=== PATIENT | female | born 1930 | race Caucasian/White ===

== ENCOUNTER 2017-03-01 13:08 | Emergency (ER) | payer OTHER ==
[~2017-03-01 13:08] MED LIST: ASCORBIC ACID500 MG PO; ASPIRIN325 MG PO; B-121000 MC1 PO; HYDROCHLOROTHIA25 MG PO; K-DUR20 MEQ PO; PRILOSEC20 MG PO; PRINIVIL5 MG PO; SYNTHROID25 MCG PO
== END 2017-03-01 19:58 | disposition critical access hospital (66) ==
LOC: ER 13:08
DX: D64.9 Anemia, unspecified (principal); I48.91 Unspecified atrial fibrillation; J98.4 Other disorders of lung; I10 Essential (primary) hypertension; Z79.82 Long term (current) use of aspirin; Z79.899 Other long term (current) drug therapy; Z88.1 Allergy status to other antibiotic agents
CPT/HCPCS: 36415; 36430; J0696; P9021

== ENCOUNTER 2017-03-01 13:08 | Inpatient (IN) | payer OTHER ==
[~2017-03-01] VITALS: Ht 152.4 cm; Wt 89.1 kg
== END 2017-03-02 17:20 | disposition short-term general hospital (02) | DRG 444 ==
LOC: ER 13:08 → MED 19:59
PROVIDERS: ADMIT Internal Medicine
PROC: 30233N1 Transfusion of Nonautologous Red Blood Cells into Peripheral Vein, Percutaneous Approach (ICD-10-PCS; principal; 2017-03-01)
DX: K81.0 Acute cholecystitis (principal); J18.9 Pneumonia, unspecified organism; K92.2 Gastrointestinal hemorrhage, unspecified; D50.0 Iron deficiency anemia secondary to blood loss (chronic); I11.0 Hypertensive heart disease with heart failure; I50.9 Heart failure, unspecified; I48.0 Paroxysmal atrial fibrillation; Z87.11 Personal history of peptic ulcer disease; M19.90 Unspecified osteoarthritis, unspecified site; E53.8 Deficiency of other specified B group vitamins; Z79.82 Long term (current) use of aspirin; Z79.899 Other long term (current) drug therapy; Z88.1 Allergy status to other antibiotic agents
CPT/HCPCS: 36415; J0696; P9021; Q9963; Q9967